=== PATIENT | female | born 1955 | race Caucasian/White ===

== ENCOUNTER 2018-07-29 17:33 | Observation (INO) | payer OTHER ==
[2018-07-29] MEDS ORDERED: NS 1,000 ML IV ONE (17:51)
[2018-07-29] MEDS ORDERED: HYDROmorphONE/DILAUDID 2 MG/ML INJ IVP ONE (17:51)
--- NOTE | 2018-07-29 17:53 | EDPHY ---
General - Diagnostics EKG: I reviewed patient's EKG. See [employer] system for interpretation - History Smoking Status: Never smoked Time Seen by Provider: 07/29/18 17:52 Narrative: CLINICAL IMPRESSION: Right proximal comminuted humerus fracture, syncope ASSESSMENT/PLAN: Patient is a 62-year-old female with a significant medical history of remote right total shoulder replacement who presents after sustaining a fall onto her right shoulder complaining of right shoulder pain and brief episode of syncope. Patient is afebrile, she is very uncomfortable appearing however not toxic- appearing. Vital signs reviewed and remained stable, patient remained on youth nutritional monitor and was observed for a period of time. Patient with a history of syncope related to low blood pressure and pain in the past, very typical for her. ECG with no evidence if bradycardia, sinus pause, SVT or other conduction defect- reviewed by myself and Dr. Geronimo. Shoulder/humerus x-ray revealed comminuted proximal periprosthetic humerus fracture. History and physical examination is consistent with comminuted periprosthetic proximal humerus fracture and syncopal episode. There were no findings to compartment syndrome, open fracture, neurovascular compromise, vascular disease , CHF, arrhythmia (WPW, Bruggada Syndrome, prolonged QT, ventricular arrhythmia , SVT, bradyarrhythmia, or cardiac outflow obstruction- no murmur and not exertional in nature). There were no red flag symptoms in regards to her syncope , specifically, not exertional onset, no chest pain, dyspnea, low back pain, palpitations, severe headache, focal neurologic deficits, diplopia, ataxia, or dysarthria. I have a low clinical suspicion for other central nervous system etiology. The patient was given multiple doses of narcotic pain medication with very little relief of her discomfort. Her surgery was performed at the [facility] in [place] and she wishes to continue her care there, I did page their on-call service to notify them of her admission. The patient will be admitted to the hospitalist service for further pain control, I spoke to Dr. Bender who will be the admitting physician. DIFFERENTIAL DX: Etiology of syncope including but not limited to vasovagal syncope, arrhythmia, dehydration, and blood loss. Etiology of shoulder pain includes but not limited to in no particular order dislocation, fracture, hardware malpositioning , compartment syndrome. ED COURSE: 1804: Discussed with Dr. Geronimo. Will obtain baseline ECG. 1810: Patient still experiencing significant pain, IV just started. Will re- eval after dilaudid. 1828: ECG NSR rate 68, no evidence of ischemia. 1899: Patient with comminuted proximal right humerus fracture. Patient still with significant amount of pain, shaking as a result of Dilaudid, trialed fentanyl. [facility] paged. Dr. Amor Morgan who was on-call with the [facility] returned my call after the patient had gone to the floor. He will notify Dr. Flores of patient' s admission. [phone] CHIEF COMPLAINT: Right shoulder pain, syncope HPI: Patient is a 62-year-old female with a significant history of remote right total shoulder replacement who presents to the emergency department complaining of severe right shoulder pain. Patient reports she slipped down 3 stairs landing directly on her right elbow, she felt severe pain as her upper arm jammed into her prosthesis. She immediately experienced pain in her upper arm and into her shoulder. The pain has been severe, denies any radiation. She did not hit her head. The patient did have a brief episode of syncope secondary to the pain response which is not unusual for her. This was witnessed. She denies any neck pain, back pain, chest pain or shortness of breath. She has been unable to move the arm at all, denies any numbness or tingling of the arm or digits. She denies any chest wall pain or chest injury. She denies any abdominal pain or abdominal injury. She denies any other injury or complaint. PMH: Denies Pertinent Past Surgical History: Right total shoulder replacement, Youngblood neuroma removal Family History: Noncontributory Social History: Rare alcohol, denies smoking or illicit drug use. REVIEW OF SYSTEMS: All other systems negative Constitutional: No fever, no chills, appetite change. Eyes: No discharge, vision change ENT: No sore throat, congestion, ear pain. Cardiovascular: No chest pain, no palpitations. Respiratory: No cough, no shortness of breath. Gastrointestinal: No abdominal pain, no vomiting, diarrhea. Genitourinary: No hematuria, dysuria, flank pain, pelvic pain Musculoskeletal: Right shoulder pain. No back pain, myalgias. Skin: No rashes, color change. Neurological: Syncope. No headache, dizziness, weakness. PHYSICAL EXAM: General Appearance: Well-developed, very uncomfortable appearing however not toxic-appearing. HENT: Normocephalic, atraumatic. Bilateral external ears are normal. Bilateral tympanic membranes are normal with pearly [place] reflex. Nares are clear, mucosa is pink. Oropharynx is clear, uvula is midline. There is no tonsillar enlargement or exudate. The dentition is normal. Eyes: PERRLA, EOMI intact. Conjunctiva pink, no pallor or injection Upper Extremities: No clavicle tenderness or deformity. Tenderness to palpation of the lateral shoulder and proximal humerus, deformity noted. Compartment is soft. No increased warmth on palpation. No obvious deformity, abrasions, ecchymosis. No atrophy or asymmetry compared to opposite side. Limited ROM to flexion/extension/abduction/adduction, pain elicited with all movement. 2+ radial pulses with capillary refill < 2 seconds. Left elbow is nontender to palpation. 5/5 strength at fingers, wrist, elbow. Resisted wrist extension (radial nerve): normal. Resisted thumb opposition ( median nerve): normal. Resisted finger abduction (ulnar nerve): normal. Sensation intact throughout. Neck: FROM intact to flexion/extension/rotational movement. No midline tenderness. No step-off or deformity. Back: No step-off, palpable bony abnormality, edema, erythema or ecchymosis of the cervical, thoracic or lumbar spines. Thoracic and lumbar spines with no midline or paraspinal muscle tenderness to palpation. Full range of motion of all spines. 5/5 and equal strength of the UEs and LEs bilaterally including shoulder shrug ( except right shoulder as mentioned above). Pulses: 2+ and equal radial, DP and PT pulses bilaterally. Sensation intact and symmetric to light touch from face, UEs and LEs bilaterally. Respiratory: There are no retractions, lungs are clear to auscultation. No chest wall tenderness. Cardiac: Regular rate and rhythm, no murmurs or gallops. Gastrointestinal: Abdomen is soft, nontender, bowel sounds normal, no masses/ hernia, no rigidity, guarding or focal peritoneal findings. Neurological: Alert and oriented x 3, CN 2-12 grossly intact, normal gait no ataxia, DTR's intact, normal sensation and strength. Skin: Warm, dry, no rashes, no nodules on palpation. Musculoskeletal: Extremities are symmetrical, full range of motion, no tenderness, deformity, swelling, or erythema. Psychiatric: Patient is oriented X 3, there is no agitation. MEDICAL DECISION MAKING: Patient was seen independently. Secondary supervising physician at time of evaluation was Dr. Geronimo. Diagnosis: Comminuted right periprosthetic proximal humerus fracture. New, requires workup Summary: See Assessment and Plan for summary of ED visit Clinical lab tests: ordered / reviewed. Independent visualization of images, tracing, or specimens: Yes. Decision to obtain medical records or history from someone other than the patient: Yes, daughter Review / Summarize previous medical records: Yes Discussed patient with another provider: Yes, Dr. Geronimo Patient Progress: Stable, admit. (Chloé Rivero) Medical Decision Making: PHYSICIAN DOCUMENTATION: The patient was evaluated and managed by the Physician Online Marketing Analyst and myself. I have reviewed the chart and agree with the findings and plan of care as documented. In addition, I examined the patient myself at 1915. History confirmed as a fall onto her right shoulder. Physical findings as follows: Patient has intact sensation on both deltoids as well as normal motor and sensory in the right hand and normal right radial pulse. Admission hospitalist for pain control. Syncope likely vasovagal, EKG reviewed. I am the secondary supervising physician. (Austyn Geronimo) - Objective Vital Signs: Initial Vital Signs Temperature (C) 36.5 C 07/29/18 17:36 Heart Rate 95 07/29/18 17:36 Respiratory Rate 19 07/29/18 17:36 Blood Pressure 119/94 H 07/29/18 17:36 O2 Sat (%) 99 07/29/18 17:36 O2 Delivery Mode Room Air Allergies/Adverse Reactions: No Known Allergies Allergy (Unverified 07/29/18 17:36) Home Medications: Medication Instructions Recorded Estradiol Vaginal Supp - Cmpd 1 supp VG TUSA 07/29/18 Acetaminophen [Tylenol ES 500 mg 1,000 mg PO Q8 #30 tab 07/30/18 (*)] Oxycodone HCl 5 - 10 mg PO Q4H #45 capsule 07/30/18 celeCOXIB [Celebrex (*)] 200 mg PO BID #60 cap 07/30/18 Medications Given: Acetaminophen (Tylenol) 1,000 mg PO Q8 STEPHANY Stop: 01/25/19 21:59 Last Admin: 07/30/18 13:47 Dose: 1,000 mg Celecoxib (Celebrex) 200 mg PO BID STEPHANY Stop: 01/25/19 21:44 Last Admin: 07/30/18 09:09 Dose: 200 mg Enoxaparin Sodium (Lovenox) 40 mg SC DAILY STEPHANY Stop: 01/26/19 08:59 Last Admin: 07/30/18 09:10 Dose: 40 mg Oxycodone HCl (Oxycodone Ir) 5 - 10 mg PO Q3HRS PRN PRN Reason: Pain, Severe Able to Take PO Stop: 08/08/18 20:09 Last Admin: 07/30/18 17:07 Dose: 10 mg Senna/Docusate Sodium (Senokot-S) 1 - 2 tab PO BID STEPHANY PRN Reason: Protocol Stop: 01/26/19 08:59 Last Admin: 07/30/18 09:10 Dose: 2 tab Discontinued Medications Fentanyl (Sublimaze) 50 mcg IVP EDNOW ONE Stop: 07/29/18 18:46 Last Admin: 07/29/18 18:46 Dose: 50 mcg Fentanyl (Sublimaze) 50 mcg IVP EDNOW ONE Stop: 07/29/18 20:05 Last Admin: 07/29/18 20:06 Dose: 50 mcg Hydromorphone HCl (Dilaudid) 0.5 mg IVP EDNOW ONE Stop: 07/29/18 17:52 Last Admin: 07/29/18 18:08 Dose: 0.5 mg Sodium Chloride (Ns) 1,000 mls @ 0 mls/hr IV ONCE ONE PRN Reason: Wide Open Stop: 07/29/18 17:52 Last Admin: 07/29/18 18:07 Dose: 1,000 mls Lorazepam (Ativan Injection) 0.5 mg IVP EDNOW ONE Stop: 07/29/18 19:04 Last Admin: 07/29/18 19:04 Dose: 0.5 mg Departure - Departure Disposition: [facility] Inpatient Acute Clinical Impression: Fracture, humerus Qualifiers: Encounter type: initial encounter Humerus Location: proximal Fracture type: closed Fracture morphology: unspecified fracture morphology Laterality: right Qualified Code(s): S42.201A - Unspecified fracture of upper end of right humerus , initial encounter for closed fracture Condition: Good
--- NOTE | 2018-07-29 18:30 | CPEKG ---
Test Reason : OPEN Blood Pressure : / mmHG Vent. Rate : 068 BPM Atrial Rate : 069 BPM P-R Int : 181 ms QRS Dur : 086 ms QT Int : 419 ms P-R-T Axes : 064 040 042 degrees QTc Int : 446 ms Sinus rhythm Left atrial enlargement Confirmed by Ramesh Marcano ([id number]) on 07/29/2018 6:29:36 PM Referred By: RAMESH MARCANO Confirmed By:Ramesh Marcano
[2018-07-29] MEDS ORDERED: fentaNYL 100 MCG/2 ML INJ ONE (18:43)
[2018-07-29] MEDS ORDERED: fentaNYL 100 MCG/2 ML INJ IVP ONE ×2 (18:45→20:04)
[2018-07-29] MEDS ORDERED: LORazepam 2 MG/ML INJ ONE (19:01)
[2018-07-29] MEDS ORDERED: LORazepam 2 MG/ML INJ IVP ONE (19:03)
[2018-07-29] MEDS ORDERED: ACETAMINOPHEN 325 MG TAB PO PRN (20:10)
[2018-07-29] MEDS ORDERED: HYDROmorphONE/DILAUDID 1 MG/ML INJ IVP PRN (20:10)
[2018-07-29] MEDS ORDERED: ONDANSETRON DISINTEGRATING 4 MG TAB PO PRN (20:10)
[2018-07-29] MEDS ORDERED: ONDANSETRON 4 MG/2 ML VIAL IVP PRN (20:10)
--- NOTE | 2018-07-29 20:11 | PDGENHP ---
History and Physical - Chief Complaint fall, right shoulde rpain - History of Present Illness 62yo healthy F with history of right shoulder arthroplasty presents after a fall. She was walking down some slippery stairs this evening when she slipped and landed on her right elbow. This caused her shoulder to jam upwards. She immediately had very intense pain in her right upper arm. She passed out due to the pain. In the ED, an x-ray confirmed a proximal right humerus comminuted cedrick -prosthetic fracture. She initially had excruciating pain with any movement but now better after receiving IV fentanyl, dilaudid and ativan. Case discussed with orthopedic surgery (Dr Sheppard). She is being admitted for pain control. History Information - Allergies/Home Medication List Allergies/Adverse Reactions: No Known Allergies Allergy (Unverified 07/29/18 17:36) Home Medications: Estradiol Vaginal Supp - Cmpd 1 supp VG TUSA 07/29/18 [Last Taken 07/28/18] I have personally reviewed and updated: family history, medical history, social history, surgical history - Past Medical History Additional medical history: right shoudler adhesive capsulitis - Surgical History Additional surgical history: right shoulder arthroplasty 05/[address] Caleb Flores at [facility] in [place] - Family History Positive for: non-pertinent - Social History Smoking Status: Never smoked Alcohol Use: Rarely Drug Use: None Additional social history: Lives in [place], friend at bedside Review of Systems Review of Systems: ROS: 10pt was reviewed & negative except for what was stated in HPI & below Physical Exam Physical Exam: Temp Pulse Resp BP Pulse Ox 36 C 94 16 110/78 97 07/29/18 19:48 07/29/18 19:48 07/29/18 19:48 07/29/18 19:48 07/29/18 19:48 Constitutional: no apparent distress, appears nourished, not in pain Eyes: PERRL, anicteric sclera, EOMI Ears, Nose, Mouth, Throat: moist mucous membranes, hearing normal, ears appear normal, no oral mucosal ulcers Cardiovascular: regular rate and rhythym, no murmur, rub, or gallop, No edema Respiratory: no respiratory distress, no rales or rhonchi, clear to auscultation Gastrointestinal: normoactive bowel sounds, soft, non-tender abdomen, no palpable masses Genitourinary: no bladder fullness, no bladder tenderness Skin: warm, normal color, no rashes or abrasions, no fluctuance, no induration, No mottled Musculoskeletal: other (unable to fully evaluate right arm/shoulder due to pain) Neurologic: AAOx3 Psychiatric: interacting appropriately, not anxious, not encephalopathic, thought process linear Lab Data & Imaging Review Interpretation: Rigth arm/shoulder x-ray: communited, minimally displaced right proximal humerus fracture at distal aspect of prosthesis Assessment & Plan Assessment: 62yo healthy F with history of right shoulder arthroplasty presents after a fall found to have cedrick-prosthetic fracture. She is being admitted for pain control. Plan: #Acute proximal right humerus fracture: At distal end of prosthesis. She had her TSA done by Dr Flores at [facility]. - Discussed case with Dr Sheppard of orthopedics, who will see patient. No need for acute surgical management. - Sling for comfort - Patient wants to discuss options with Dr Flores. A call has been placed to the [facility] and message left by ED provider - PT/OT #Acute pain - Schedule APAP 1g q8, celecoxib 200mg BID - Dilaudid and ativan IV PRN for breakthrough, bowel regimen VTE ppx: LMWH Code: full Dispo: Admit under observation
--- NOTE | 2018-07-29 21:23 | PDCONSULT ---
Pigment Presser Note: Orthopaedic Consult Note DOS: 07/29/2018 CC: Right shoulder pain HPI: Called by hospitalist to see patient on floor. 62y F h/o Right shoulder arthroplasty 2016 done at [place]. Patient fell onto elbow today and p/w right periprosthetic proximal humerus fracture. Admitted for pain control by hospitalist service PMHx: Denies PSHx: RIght TSA, sun resection Meds: Estrogen suppository FamHx: noncontributory All: NKDA SocHx: Nonsmoker (vapes non-nicotine substances) ROS: was in usual state of health before fall PE: AxOx3. unlabored breathing. Conversive RUE: in sling. No TTP Right elbow/wrist/hand. TTP at right proximal humerus and shoulder region. Well healed surgical incision without erythema. Some edema around shoulder. SILT A/R/U/M. 2+ radial pulse. 4/5 EPL/APB/FDS/FDP2,5/IO limited by shoulder pain. Able to range elbow passively without crepitus/pain. Imaging: Right TSA in place. Periprosthetic humeral fracture. glenohumeral joint appears located. Plan: - NWB RUE - SLing for comfort - Pt would like to discuss next steps for her periprosthetic fracture with her [place] physicians. - No acute need for operative intervention today - Pain control per primary team - Followup with index procedure orthopaedic surgeon in [place], per patient's wishes - Call if ?
[2018-07-29] MEDS ORDERED: LORazepam 2 MG/ML INJ IVP PRN (21:42)
[2018-07-29] MEDS: ACETAMINOPHEN 500 MG TAB PO SCH (22:33)
[2018-07-29] MEDS: oxyCODONE IR 5 MG TAB PO PRN (22:34)
[2018-07-29] MEDS ORDERED: LACTULOSE 20 GM/30 ML UDCUP PO PRN (22:46)
[2018-07-29] MEDS ORDERED: POLYETHYLENE GLYCOL 3350 17 GM PKT PO PRN (22:46)
[2018-07-29] MEDS ORDERED: MAGNESIUM HYDROXIDE 30 ML UDCUP PO PRN (22:46)
[2018-07-29] MEDS ORDERED: BISACODYL 10 MG SUPP PR PRN (22:46)
[2018-07-30] MEDS: oxyCODONE IR 5 MG TAB PO PRN ×5 (02:10→17:07)
[2018-07-30] MEDS: ACETAMINOPHEN 500 MG TAB PO SCH ×2 (05:33→13:47)
[2018-07-30] MEDS ORDERED: ENOXAPARIN 40 MG/0.4 ML SYR SC SCH (09:00)
[2018-07-30] MEDS ORDERED: SENNOSIDES/DOCUSATE SODIUM TAB PO SCH (09:00)
[2018-07-30 15:34] VITALS: BP 91/63
--- NOTE | 2018-07-30 16:04 | ASDISCHSUM ---
Discharge Information Plan Status:Home with No Needs Medically Cleared to Leave:07/29/2018 Discharge Date:07/29/2018 CM D/C Disposition:Home, Routine, Self-Care ADT D/C Disposition:Home, Routine, Self-Care Projected Discharge Date:07/29/2018 Transportation at D/C:Friend Discharge Delay Reason: Follow-Up Date:07/29/2018 Discharge Slot: Final Diagnosis:Humerus fracture Placement Information Patient Contact Information Contact Name:LONG Relationship:Daughter Address: City: [facility] Phone: [facility] Code: Email: Financial Information Financial Class:HMO and PPO Plans Primary Plan Desc:Liazon PHILLIP Primary Plan Number:[id number] Secondary Plan Desc: Secondary Plan Number: Assessment Information LACE LACE Length of stay for Answers: Less than 1 day current admission Acuity / Level of Answers: Yes Care: Did the patient have an inpatient admission? Comorbidities - select Answers: Other Notes: TSA, humerus fracture all that apply # of Emergency department Answers: 1-2 visits in the last 6 months Score: 5 Date Signed: 07/30/2018 04:03 PM Electronically Signed By:Yady Kiser [facility] CM Progress Note CM Note CM Note Notes: Pt admitted for pain control after sustaining humerus fracture of a prosthetic shoulder after a fall. Pt to discharge and consult with original orthopedic surgeon in [place]. CM provided pt phone number for financial counseling upon request. Pt expressed concern about hospital charges. Pt to discharge independently h support from friend. No CM need identified at this time. Date Signed: 07/30/2018 04:01 PM Electronically Signed By:Yady Kiser Intervention Information
--- NOTE | 2018-07-30 20:34 | GDS ---
[f rep st] DISCHARGE SUMMARY DISCHARGE DIAGNOSES: Acute proximal right humerus fracture at the end of prosthesis. Acute pain. HISTORY OF PRESENT ILLNESS: A 62-year-old female with history of right shoulder arthroplasty present s after a fall. She was walking down slippery stairs last evening, landed on her right elbow. This ca used her shoulder to jam upwards. Immediately had very intense pain in right upper arm. HOSPITAL COURSE BY PROBLEM: 1. Acute proximal right humerus fracture: Involved the distal end of her shoulder prosthesis. She wa s evaluated by Dr. Sheppard with Orthopedics. No emergency surgery needed. She had her initial surgery by Dr. Menard at [facility] in [place]. She has a followup appointment with him tomorrow at 10 a.m. She will get a shoulder CT prior to discharge today. Will discharge home with Celebrex, oxycodone, an d stool softeners for pain control. 2. Acute pain control: Scheduled Tylenol 1 g 3 times a day, Celebrex twice a day, and oxycodone as n eeded. DISPOSITION: Patient is stable for discharge home. FOLLOWUP: Dr. Menard at [facility]. PHYSICAL EXAMINATION: VITAL SIGNS: Temperature 36.8, blood pressure 104/63, heart rate is in the 70s , respiratory rate 18, and 95% on room. GENERAL: Uncomfortable, sitting up in bed eating. No acute di stress. HEENT: PERRLA. Moist mucous membranes. MUSCULOSKELETAL: Right shoulder in sling. : No Webb . NEURO: 2 through 12 intact. PSYCH: Alert and oriented x3. TIME SPENT ON DISCHARGE: Greater than 30 minutes at the bedside discussing pain control and followup plan. /[id number]/MODL
== END 2018-07-30 19:30 | disposition home or self-care (01) ==
LOC: F3N 20:40
PROVIDERS: ADMIT Internal Medicine; ATTEND Internal Medicine
DX: S42.291A Other displaced fracture of upper end of right humerus, initial encounter for closed fracture (principal); M97.31XA Periprosthetic fracture around internal prosthetic right shoulder joint, initial encounter; W00.1XXA Fall from stairs and steps due to ice and snow, initial encounter; Z96.611 Presence of right artificial shoulder joint; R55 Syncope and collapse; Y92.9 Unspecified place or not applicable; Y93.9 Activity, unspecified
CPT/HCPCS: 73030; 73060; 73200; 93005; 96372; 97161; 97166; 99285; G0378; A4565; J1170; J1650; J2060; J3010